=== PATIENT | male | born 2000 | race Caucasian/White ===

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

== ENCOUNTER 2022-08-18 15:08 | Emergency (ER) | payer SELFPAY ==
[~2022-08-18] VITALS: Ht 167.6 cm; Wt 55.0 kg
[2022-08-18 15:30] VITALS: BP 125/79
== END 2022-08-18 18:06 | disposition left against medical advice (07) ==
LOC: ER 15:08
DX: Z53.21 Procedure and treatment not carried out due to patient leaving prior to being seen by health care provider (principal)